=== PATIENT | female | born 1940 | race Caucasian/White ===

== ENCOUNTER 2016-04-04 15:02 | Emergency (ER) | payer MEDICARE, BC | END 2016-04-04 15:52 | disposition home or self-care (01) | LOC: ED 15:02 | DX: Z09 Encounter for follow-up examination after completed treatment for conditions other than malignant neoplasm (principal); Z98.890 Other specified postprocedural states; Z79.899 Other long term (current) drug therapy; Z79.02 Long term (current) use of antithrombotics/antiplatelets; Z88.0 Allergy status to penicillin; E03.9 Hypothyroidism, unspecified; E78.5 Hyperlipidemia, unspecified; I10 Essential (primary) hypertension ==